=== PATIENT | female | born 2000 | race Caucasian/White ===

== ENCOUNTER 2020-05-13 12:57 | Emergency (ER) | payer OTHER ==
[~2020-05-13] VITALS: Ht 157.5 cm; Wt 58.1 kg
[2020-05-13 12:58] VITALS: BP_SYST 128
[2020-05-13] MEDS ORDERED: BACITRACIN ZINC 15 GM TOPICAL OINTMENT TP ONE (13:15)
[2020-05-13] MEDS: BACITRACIN ZINC 15 GM TOPICAL OINTMENT TP SCH (13:17)
[2020-05-13 13:43] VITALS: BP_SYST 128
== END 2020-05-13 13:40 | disposition home or self-care (01) ==
LOC: SED 12:57
DX: S61.301A Unspecified open wound of left index finger with damage to nail, initial encounter (principal); W22.8XXA Striking against or struck by other objects, initial encounter; Y93.89 Activity, other specified; Y92.89 Other specified places as the place of occurrence of the external cause; Y99.8 Other external cause status
CPT/HCPCS: 73140-TC; 99283

== ENCOUNTER 2023-06-30 16:39 | Emergency (ER) | payer MEDICAID, OTHER ==
[~2023-06-30] VITALS: Ht 157.5 cm; Wt 61.2 kg
[2023-06-30 17:00] VITALS: BP_SYST 104; PULSE 74; RESP 18; TEMP 97.8; O2SAT 98
[2023-06-30] MEDS: EPINEPHRINE HCL/PF 1 MG/ML AMP IM ONE (17:27)
[2023-06-30] MEDS ORDERED: DIPH25CA83 PO (17:42)
[2023-06-30] MEDS ORDERED: PRED20TA PO (17:42)
[2023-06-30 18:00] VITALS: BP_SYST 106; PULSE 76; RESP 18; TEMP 97.8; O2SAT 98
== END 2023-06-30 18:00 | disposition home or self-care (01) ==
LOC: SED 16:39
DX: L23.9 Allergic contact dermatitis, unspecified cause (principal); Z79.899 Other long term (current) drug therapy
CPT/HCPCS: 99283; 81025; 96372; J0171